=== PATIENT | male | born 1975 | race Caucasian/White ===

== ENCOUNTER 2017-01-01 15:21 | Emergency (ER) | payer MEDICAID ==
[~2017-01-01] VITALS: Ht 170.2 cm; Wt 101.5 kg
[~2017-01-01 15:21] MED LIST: ADVI200C5 PO; BACL10TA PO; CYCL1PAK PO; GABA300C3 PO; NAPR220T95 PO; NAPR250T57 PO; TRAM50TA PO
[2017-01-01 16:12] VITALS: BP 134/69; PULSE 78; RESP 16; TEMP 98.2; O2SAT 98
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
[2017-01-01] MEDS ORDERED: ACETAMINOPHEN/HYDROcodone 325 MG/5 MG TAB PO ONE (16:30)
[2017-01-01] MEDS ORDERED: GABAPENTIN 100 MG CAP PO ONE (16:30)
--- NOTE | 2017-01-01 16:55 | RADRPT ---
EXAM DATE/TIME: 01/01/2017 16:39 [facility] COMPARISON: No previous studies available for comparison. INDICATIONS : Right foot pain, no known injury. MEDICAL HISTORY : None. SURGICAL HISTORY : None. ENCOUNTER: Initial ACUITY: 1 day PAIN SCORE: 9/10 LOCATION: Right medial foot/ankle. FINDINGS: Mild degenerative changes are noted involving the right first metatarsophalangeal joint. There is no acute fracture or dislocation. CONCLUSION: 1. Mild degenerative changes involving the right first metatarsophalangeal joint. 2. No acute fracture or dislocation. Ayush Lopez MD on January 01, 2017 at 16:52 Board Certified Radiologist. This report was verified electronically.
--- NOTE | 2017-01-01 16:55 | RADRPT ---
EXAM DATE/TIME: 01/01/2017 16:41 [facility] COMPARISON: No previous studies available for comparison. INDICATIONS : Right ankle pain, no known injury. MEDICAL HISTORY : None. SURGICAL HISTORY : None. ENCOUNTER: Initial ACUITY: 1 day PAIN SCORE: 9/10 LOCATION: Right ankle. FINDINGS: Three view exam was performed of the right ankle. The bony structures are in normal alignment. No e vidence of fracture, dislocation, or soft tissue swelling. The ankle mortise is intact. No radiopaq ue foreign bodies are seen. Bony mineralization is normal. CONCLUSION: No acute disease. Ayush Lopez MD on January 01, 2017 at 16:53 Board Certified Radiologist. This report was verified electronically.
--- NOTE | 2017-01-01 17:35 | PD ---
Data Data Last Documented VS Vital Signs Date Time Temp Pulse Resp B/P Pulse Ox O2 Delivery O2 Flow Rate FiO2 01/01/17 16:12 98.2 78 16 134/69 98 Orders Us Leg Venous Doppler (01/01/17 16:16) Ankle, Complete ([id number]) (01/01/17 ) Foot, Complete ([id number]) (01/01/17 ) Acetamin-Hydrocod 325-5 Mg ([place] 5-325 (01/01/17 16:30) Gabapentin (Neurontin) (01/01/17 16:30) MDM Supervised Visit with MARGIE: Yes Narrative Course The history, exam, and medical decision-making in the associated midlevel provider note were completed with my assistance. I reviewed and agree with the findings presented. I attest that I had a [id number] encounter with the patient on the same day, and personally performed and documented my assessment and findings in the medical record. *My assessment and Findings: This is a 41-year-old male who presents to the emergency department with right ankle and right foot pain that has been worsening over the past several days. He denies any fevers or chills. He's had pain like this before. He has a history of chronic neuropathy for which she 's been going to different specialist but doesn't really have a diagnosis. On exam he has no joint effusion and is tender to light touch over the ankle and the foot. He has no erythema or warmth of the foot or ankle. I don't suspect septic arthritis. Ultrasound will be obtained for DVT at the request of his primary care physician although I think that's unlikely. X-rays are reassuring. Patient will be discharged with pain control and follow-up as an outpatient. Gia Harmon MD Jan 01, 2017 17:35
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
[2017-01-01] MEDS ORDERED: DICL75TA PO (18:45)
[2017-01-01] MEDS ORDERED: GABA300C5 PO (18:46)
== END 2017-01-01 19:33 | disposition home or self-care (01) ==
LOC: NEPB 15:21
DX: M25.571 Pain in right ankle and joints of right foot (principal)
CPT/HCPCS: 73610; 73630; 93971; 99284; E0113